=== PATIENT | male | born 1945 | race Hispanic/Latino ===

== ENCOUNTER → 2021-04-19 | Outpatient (CLI) | payer MEDICARE ==
[~2021-04-19] MED LIST: AMOX1TAB16 PO; ASPI-556 PO; ATOR40TA71 PO; BUPR-317 PO; FURO-152 PO; INSLAN SQ; LINA5TAB PO; METF-910 PO; METO25TA6 PO; REGADENOSON 0.4 MG/5 ML PF SYG IVP SCH; TAMS0.4C32 PO; TRAM-355 PO
== END | disposition home or self-care (01) ==
LOC: SHCH 08:10
PROVIDERS: ATTEND Internal Medicine Cardiovascular Disease
DX: I25.709 Atherosclerosis of coronary artery bypass graft(s), unspecified, with unspecified angina pectoris (principal); I11.9 Hypertensive heart disease without heart failure; Z95.1 Presence of aortocoronary bypass graft
CPT/HCPCS: 78452; 93017; 96374; A9500 ×2; J2785

== ENCOUNTER 2022-01-27 12:52 | Inpatient (IN) | payer MEDICARE, OTHER ==
[~2022-01-27] VITALS: Ht 175.3 cm; Wt 79.0 kg
[2022-01-27] VITALS (11 sets, daily range): BP systolic 95–142; BP diastolic 50–94
[~2022-01-27 12:52] MED LIST changes: -REGADENOSON 0.4 MG/5 ML PF SYG IVP SCH
[2022-01-27 13:19] LABS: BASOPHILS % (AUTO) 0.3 % (0.0-5.0); HEMATOCRIT 42.6 % (42-54); LYMPHOCYTES % (AUTO) 3.2 % (21.0-51.0); MEAN CORPUSCULAR HEMOGLOBIN 29.2 pg (27.0-33.0); MEAN CORPUSCULAR HGB CONC 33.3 g/dL (32.0-36.0); MEAN CORPUSCULAR VOLUME 87.5 fL (79-99); MONOCYTES % (AUTO) 8.8 % (3.0-13.0); PLATELET COUNT (AUTO) 218 K/uL (130-400); RED BLOOD CELL COUNT(AUTO) 4.87 MIL/uL (4.50-6.20); RED CELL DISTRIBUTION WIDTH 13.4 % (11.0-15.5); WHITE BLOOD COUNT (AUTO) 15.6 K/uL (4.8-10.8)
[2022-01-27] MEDS ORDERED: 0.9%NACL 1000ML 1,000 ML IV ONE (13:30)
[2022-01-27 13:33] LABS: ALBUMIN 2.9 g/dL (3.5-5.0); CREATININE 1.9 mg/dL (0.5-1.5); POTASSIUM 5.5 mmol/L (3.5-5.1); TOTAL PROTEIN, SERUM 7.7 g/dL (6.0-8.3)
[2022-01-27] MEDS: 0.9%NACL 1000ML 1,000 ML IV SCH ×3 (13:49→22:16)
[2022-01-27] MEDS ORDERED: INSULIN HUMULIN R 100 UNIT/ML 3ML IV ONE (14:00)
[2022-01-27] MEDS ORDERED: ZOSYN 3.375GM +NS 50ML IV SCH (14:00)
[2022-01-27 14:12] LABS: ABG BASE EXCESS -11.6 mmol/L (-2.0-3.0); ABG HCO3 12.9 mmol/L (21.0-28.0); ABG OXYGEN SATURATION 96.3 % (95.0-99.0); ABG PCO2 27 mmHg (35-48)
[2022-01-27] MEDS ORDERED: POTASSIUM CHLORIDE 10MEQ/100ML 100 ML IV PRN (14:30)
[2022-01-27] MEDS ORDERED: DEXTROSE 5 %-0.45 % NACL 1,000 ML IV PRN (14:30)
[2022-01-27] MEDS ORDERED: 0.9%NACL 1000ML 1,000 ML IV SCH (14:30)
[2022-01-27] MEDS: INSULIN REGULAR, HUMAN 3ML 100 UNIT in 0.9%NACL 100ML 99 ML IV SCH ×2 (14:53)
[2022-01-27] MEDS ORDERED: LISI2.5T13 PO (15:20)
[2022-01-27] MEDS ORDERED: ALBU10PO MC (15:20)
[2022-01-27] MEDS ORDERED: INSU3INS10 SQ (15:20)
[2022-01-27] MEDS ORDERED: ERGO500093 PO (15:20)
[2022-01-27] MEDS ORDERED: GLIM1TAB18 PO (15:20)
[2022-01-27 15:50] LABS: APPEARANCE,URINE CLEAR (CLEAR); BILIRUBIN,URINE NEGATIVE (NEGATIVE); COLOR,URINE YELLOW (YELLOW); GLUCOSE, URINE (UA) >=1000 mg/dL (NEGATIVE); KETONES,URINE 40 mg/dL (NEGATIVE); LEUKOCYTE ESTERASE ,URINE TRACE (NEGATIVE); NITRATE,URINE POSITIVE (NEGATIVE); OCCULT BLOOD,URINE SMALL (NEGATIVE); PROTEIN,URINE NEGATIVE (NEGATIVE); UROBILINOGEN,URINE 0.2 mg/dL (0.2-1.0)
[2022-01-27 16:08] LABS: BACTERIA,URINE Few /HPF (None Seen); RBC,URINE None Seen /HPF (0-1); SQUAMOUS EPITHELIAL CELL,UR None Seen /HPF (0-2)
[2022-01-27] MEDS ORDERED: PHARMACY COMMUNICATION MISC SCH (16:30)
[2022-01-27 17:13] LABS: POTASSIUM 4.3 mmol/L (3.5-5.1)
[2022-01-27 17:14] LABS: CREATININE 1.5 mg/dL (0.5-1.5)
[2022-01-27 17:23] LABS: THYROID STIMULATING HORMONE 1.61 uIU/mL (0.36-3.74)
[2022-01-27] MEDS: MEROPENEM 1 GM VIAL IV SCH (17:50)
[2022-01-27 19:17] LABS: CREATININE 1.5 mg/dL (0.5-1.5); POTASSIUM 4.1 mmol/L (3.5-5.1)
[2022-01-27] MEDS: ATORVASTATIN 40 MG TABLET PO SCH (20:45)
[2022-01-27] MEDS: INSULIN GLARGINE 100 UNITS/ML 10 ML VIAL SQ SCH (20:46)
[2022-01-27] MEDS ORDERED: METOPROLOL TARTRATE 25 MG TAB PO SCH (21:00)
[2022-01-27] MEDS ORDERED: ASPIRIN 325MG TAB PO STA (21:24)
[2022-01-27] MEDS ORDERED: NITROGLYCERIN 0.4 MG SL TAB SL PRN (21:30)
[2022-01-27] MEDS: ENOXAPARIN SODIUM 80 MG/0.8 ML SQ SCH (22:21)
[2022-01-27 23:22] LABS: CREATININE 1.2 mg/dL (0.5-1.5); POTASSIUM 3.8 mmol/L (3.5-5.1)
[2022-01-27] MEDS: D5W-1/2 NS/20MEQ KCL 1,000 ML IV SCH (23:57)
[2022-01-28] VITALS (23 sets, daily range): BP systolic 87–120; BP diastolic 46–68
[2022-01-28] MEDS: 0.9%NACL 1000ML 1,000 ML IV SCH ×4 (00:30→23:18)
[2022-01-28 03:43] LABS: HEMATOCRIT 34.4 % (42-54); MEAN CORPUSCULAR HEMOGLOBIN 29.1 pg (27.0-33.0); MEAN CORPUSCULAR HGB CONC 34.3 g/dL (32.0-36.0); MEAN CORPUSCULAR VOLUME 84.7 fL (79-99); RED BLOOD CELL COUNT(AUTO) 4.06 MIL/uL (4.50-6.20); RED CELL DISTRIBUTION WIDTH 13.3 % (11.0-15.5); WHITE BLOOD COUNT (AUTO) 11.2 K/uL (4.8-10.8)
[2022-01-28 04:05] LABS: CREATININE 1.1 mg/dL (0.5-1.5); MAGNESIUM 1.9 mg/dL (1.80-2.40); PHOSPHORUS 2.6 mg/dL (2.5-4.9); POTASSIUM 4.2 mmol/L (3.5-5.1); TOTAL PROTEIN, SERUM 5.7 g/dL (6.0-8.3); URIC ACID 7.1 mg/dL (2.6-7.2)
[2022-01-28] MEDS: D5W-1/2 NS/20MEQ KCL 1,000 ML IV SCH (05:19)
[2022-01-28] MEDS: MEROPENEM 1 GM VIAL IV SCH ×2 (05:19→16:31)
[2022-01-28 08:07] LABS: CREATININE 1.1 mg/dL (0.5-1.5); POTASSIUM 3.7 mmol/L (3.5-5.1)
[2022-01-28] MEDS: INSULIN REGULAR, HUMAN 3ML 100 UNIT in 0.9%NACL 100ML 99 ML IV SCH ×2 (08:50)
[2022-01-28] MEDS ORDERED: LISINOPRIL 2.5 MG TABLET PO SCH (09:00)
[2022-01-28] MEDS: FUROSEMIDE 20 MG TABLET PO SCH (09:00)
[2022-01-28] MEDS: MAGNESIUM 2GM PREMIX 50ML 50 ML IV PRN (09:58)
[2022-01-28] MEDS: Vitamin B Complex/Vit C/Folic Acid PO SCH (10:12)
[2022-01-28] MEDS: ASPIRIN 81 MG EC TAB PO SCH (10:12)
[2022-01-28] MEDS: ENOXAPARIN SODIUM 80 MG/0.8 ML SQ SCH (11:13)
[2022-01-28] MEDS: INSULIN HUMULIN R 100 UNIT/ML 3ML SQ SCH ×3 (11:14→21:33)
[2022-01-28] MEDS ORDERED: ACETAMINOPHEN 325 MG TAB PO PRN (12:30)
[2022-01-28] MEDS ORDERED: POTASSIUM CHLORIDE 10% ELIXIR 20 MEQ/15 ML UDCUP PO PRN (13:00)
[2022-01-28] MEDS ORDERED: LIDOCAINE HCL-MPF 1% 2ML VIAL IV PRN (13:00)
[2022-01-28] MEDS ORDERED: POTASSIUM CHLORIDE 20MEQ/100ML 100 ML IV PRN (13:00)
[2022-01-28] MEDS ORDERED: ZOSYN 3.375GM +NS 50ML IV SCH (14:00)
[2022-01-28 20:05] LABS: CREATININE 0.8 mg/dL (0.5-1.5); MAGNESIUM 2.1 mg/dL (1.80-2.40); POTASSIUM 3.8 mmol/L (3.5-5.1)
[2022-01-28] MEDS: INSULIN GLARGINE 100 UNITS/ML 10 ML VIAL SQ SCH (21:34)
[2022-01-28] MEDS: ATORVASTATIN 40 MG TABLET PO SCH (21:34)
[2022-01-29 00:18] VITALS: BP 115/64
[2022-01-29 04:00] VITALS: BP 121/68
[2022-01-29 04:28] LABS: HEMATOCRIT 34.8 % (42-54); MEAN CORPUSCULAR HEMOGLOBIN 28.6 pg (27.0-33.0); MEAN CORPUSCULAR HGB CONC 33.9 g/dL (32.0-36.0); MEAN CORPUSCULAR VOLUME 84.5 fL (79-99); PLATELET COUNT (AUTO) 135 K/uL (130-400); RED BLOOD CELL COUNT(AUTO) 4.12 MIL/uL (4.50-6.20); RED CELL DISTRIBUTION WIDTH 13.2 % (11.0-15.5); WHITE BLOOD COUNT (AUTO) 8.6 K/uL (4.8-10.8)
[2022-01-29 04:48] LABS: ALBUMIN 1.8 g/dL (3.5-5.0); CREATININE 0.8 mg/dL (0.5-1.5); MAGNESIUM 1.9 mg/dL (1.80-2.40); PHOSPHORUS 2.3 mg/dL (2.5-4.9); POTASSIUM 4.1 mmol/L (3.5-5.1); TOTAL PROTEIN, SERUM 5.3 g/dL (6.0-8.3)
[2022-01-29 04:56] LABS: LYMPHOCYTES % (MANUAL) 4 % (22-44); MONOCYTES % (MANUAL) 12 % (2-9); SEGMENTED NEUTROPHILS % 84 % (40-70)
[2022-01-29 04:57] LABS: MAN.DIFF COMMENT-IMPRESSION MANUAL DIFFERENTIAL; PLATELET MORPHOLOGY COMMENT ADEQUATE
[2022-01-29] MEDS: MEROPENEM 1 GM VIAL IV SCH ×2 (05:35→16:21)
[2022-01-29] MEDS: MAGNESIUM 2GM PREMIX 50ML 50 ML IV PRN (05:36)
[2022-01-29] MEDS: INSULIN HUMULIN R 100 UNIT/ML 3ML SQ SCH ×7 (06:17→22:19)
[2022-01-29 08:33] VITALS: BP 127/63
[2022-01-29] MEDS: ASPIRIN 81 MG EC TAB PO SCH (08:39)
[2022-01-29] MEDS: FUROSEMIDE 20 MG TABLET PO SCH (08:39)
[2022-01-29] MEDS: TAMSULOSIN HCL 0.4 MG CAP.ER.24H PO SCH (08:39)
[2022-01-29] MEDS: Vitamin B Complex/Vit C/Folic Acid PO SCH (08:39)
[2022-01-29] MEDS: ENOXAPARIN SODIUM 80 MG/0.8 ML SQ SCH (08:40)
[2022-01-29] MEDS: INSULIN GLARGINE 100 UNITS/ML 10 ML VIAL SQ SCH ×2 (08:45→22:21)
[2022-01-29] MEDS ORDERED: NEUTRA-PHOS PACKET 1 EACH PO SCH (10:30)
[2022-01-29 11:50] VITALS: BP 127/73
[2022-01-29] MEDS: 0.9%NACL 1000ML 1,000 ML IV SCH (13:53)
[2022-01-29 16:15] VITALS: BP 136/72
[2022-01-29 19:18] VITALS: BP 128/69
[2022-01-29] MEDS: ATORVASTATIN 40 MG TABLET PO SCH (22:18)
[2022-01-29] MEDS: METOPROLOL TARTRATE 25 MG TAB PO SCH (22:18)
[2022-01-30 00:15] VITALS: BP 117/64
[2022-01-30 03:18] VITALS: BP 123/66
[2022-01-30] MEDS: 0.9%NACL 1000ML 1,000 ML IV SCH ×2 (03:34→15:37)
[2022-01-30 04:29] LABS: BASOPHILS % (AUTO) 0.2 % (0.0-5.0); EOSINOPHILS % (AUTO) 0.1 % (0.0-8.0); HEMATOCRIT 33.9 % (42-54); LYMPHOCYTES % (AUTO) 11.9 % (21.0-51.0); MEAN CORPUSCULAR HEMOGLOBIN 28.7 pg (27.0-33.0); MEAN CORPUSCULAR HGB CONC 34.2 g/dL (32.0-36.0); MEAN CORPUSCULAR VOLUME 83.9 fL (79-99); MONOCYTES % (AUTO) 8.2 % (3.0-13.0); NEUTROPHILS % (AUTO) 78.9 % (40.0-77.0); PLATELET COUNT (AUTO) 157 K/uL (130-400); RED BLOOD CELL COUNT(AUTO) 4.04 MIL/uL (4.50-6.20); RED CELL DISTRIBUTION WIDTH 13.1 % (11.0-15.5); WHITE BLOOD COUNT (AUTO) 8.3 K/uL (4.8-10.8)
[2022-01-30] MEDS: MEROPENEM 1 GM VIAL IV SCH ×2 (04:36→15:54)
[2022-01-30 04:44] LABS: CREATININE 0.6 mg/dL (0.5-1.5); MAGNESIUM 1.8 mg/dL (1.80-2.40); PHOSPHORUS 2.5 mg/dL (2.5-4.9); POTASSIUM 3.7 mmol/L (3.5-5.1)
[2022-01-30] MEDS: KCL 20 MEQ ERTAB PO PRN ×2 (04:59→08:29)
[2022-01-30] MEDS: MAGNESIUM 2GM PREMIX 50ML 50 ML IV PRN (05:00)
[2022-01-30] MEDS: INSULIN HUMULIN R 100 UNIT/ML 3ML SQ SCH ×7 (06:48→21:00)
[2022-01-30 07:34] VITALS: BP 117/67
[2022-01-30] MEDS: TAMSULOSIN HCL 0.4 MG CAP.ER.24H PO SCH (08:25)
[2022-01-30] MEDS: FUROSEMIDE 20 MG TABLET PO SCH (08:25)
[2022-01-30] MEDS: METOPROLOL TARTRATE 25 MG TAB PO SCH ×2 (08:25→21:18)
[2022-01-30] MEDS: ASPIRIN 81 MG EC TAB PO SCH (08:26)
[2022-01-30] MEDS: Vitamin B Complex/Vit C/Folic Acid PO SCH (08:26)
[2022-01-30] MEDS: ENOXAPARIN SODIUM 30 MG/0.3 ML SQ SCH (08:27)
[2022-01-30] MEDS ORDERED: INSULIN GLARGINE 100 UNITS/ML 10 ML VIAL SQ SCH ×2 (09:00→21:00)
[2022-01-30 10:53] VITALS: BP 118/68
[2022-01-30] MEDS ORDERED: LACTULOSE 20 GM/30 ML UDCUP PO PRN (14:00)
[2022-01-30 15:12] VITALS: BP 135/74
[2022-01-30] MEDS ORDERED: LEVOFLOXACIN 500 MG TABLET PO SCH ×2 (18:00→20:00)
[2022-01-30 20:33] VITALS: BP 104/66
[2022-01-30] MEDS: ATORVASTATIN 40 MG TABLET PO SCH (21:18)
[2022-01-31 00:09] VITALS: BP 116/60
[2022-01-31 04:17] LABS: HEMATOCRIT 33.5 % (42-54); MEAN CORPUSCULAR HGB CONC 34.6 g/dL (32.0-36.0); MEAN CORPUSCULAR VOLUME 83.8 fL (79-99); RED CELL DISTRIBUTION WIDTH 13.2 % (11.0-15.5)
[2022-01-31 04:33] LABS: CREATININE 0.6 mg/dL (0.5-1.5); MAGNESIUM 1.5 mg/dL (1.80-2.40); PHOSPHORUS 3.3 mg/dL (2.5-4.9); POTASSIUM 3.9 mmol/L (3.5-5.1)
[2022-01-31] MEDS: 0.9%NACL 1000ML 1,000 ML IV SCH ×2 (04:38→07:47)
[2022-01-31 04:47] VITALS: BP 126/67
[2022-01-31] MEDS: MAGNESIUM 2GM PREMIX 50ML 50 ML IV PRN (04:59)
[2022-01-31] MEDS: INSULIN HUMULIN R 100 UNIT/ML 3ML SQ SCH ×4 (07:12→11:30)
[2022-01-31 07:30] VITALS: BP 131/63
[2022-01-31] MEDS: ENOXAPARIN SODIUM 30 MG/0.3 ML SQ SCH (07:45)
[2022-01-31] MEDS: TAMSULOSIN HCL 0.4 MG CAP.ER.24H PO SCH (07:49)
[2022-01-31] MEDS: METOPROLOL TARTRATE 25 MG TAB PO SCH (07:49)
[2022-01-31] MEDS: FUROSEMIDE 20 MG TABLET PO SCH (07:49)
[2022-01-31] MEDS: Vitamin B Complex/Vit C/Folic Acid PO SCH (07:49)
[2022-01-31] MEDS: ASPIRIN 81 MG EC TAB PO SCH (07:49)
[2022-01-31] MEDS ORDERED: LINA5TAB PO (08:24)
[2022-01-31] MEDS ORDERED: INSU200I SQ (08:24)
[2022-01-31] MEDS ORDERED: LEVO500T90 PO (08:24)
[2022-01-31] MEDS ORDERED: INSLAN SQ ×2 (08:24)
[2022-01-31] MEDS ORDERED: ATOR40TA71 PO (08:24)
[2022-01-31] MEDS ORDERED: FURO-152 PO (08:24)
[2022-01-31] MEDS ORDERED: AEC81 PO (08:24)
[2022-01-31] MEDS ORDERED: LISI2.5T13 PO (08:24)
[2022-01-31] MEDS ORDERED: METOPROLOL SUCCINATE 50 MG TAB.SR.24H PO SCH (09:00)
[2022-01-31 10:45] VITALS: BP 128/62
== END 2022-01-31 12:45 | disposition home or self-care (01) | DRG 871 ==
LOC: EDH 12:52 → EDHIP 15:12 → 2BH 16:55 → 2DH 01-28 17:11
PROVIDERS: ADMIT Internal Medicine; ATTEND Internal Medicine
DX: A41.51 Sepsis due to Escherichia coli [E. coli] (principal); E11.10 Type 2 diabetes mellitus with ketoacidosis without coma; I21.A1 Myocardial infarction type 2; N17.9 Acute kidney failure, unspecified; I42.9 Cardiomyopathy, unspecified; E46 Unspecified protein-calorie malnutrition; N13.6 Pyonephrosis; Z20.822 Contact with and (suspected) exposure to COVID-19; E78.00 Pure hypercholesterolemia, unspecified; I25.10 Atherosclerotic heart disease of native coronary artery without angina pectoris; E87.5 Hyperkalemia; N40.1 Benign prostatic hyperplasia with lower urinary tract symptoms; R33.8 Other retention of urine; E88.09 Other disorders of plasma-protein metabolism, not elsewhere classified; Z66 Do not resuscitate; J44.9 Chronic obstructive pulmonary disease, unspecified; I10 Essential (primary) hypertension; F17.210 Nicotine dependence, cigarettes, uncomplicated; Z79.84 Long term (current) use of oral hypoglycemic drugs; Z81.8 Family history of other mental and behavioral disorders; Z82.49 Family history of ischemic heart disease and other diseases of the circulatory system; Z83.3 Family history of diabetes mellitus; Z85.038 Personal history of other malignant neoplasm of large intestine; Z85.46 Personal history of malignant neoplasm of prostate; Z95.1 Presence of aortocoronary bypass graft; Z68.25 Body mass index [BMI] 25.0-25.9, adult
CPT/HCPCS: 36415; 36600; 71045; 74176; 76770; 80048; 80053; 81001; 82010; 82803; 82948; 83036; 83605; 83735; 84100; 84145; 84443; 84484; 84550; 85025; 85027; 87077; 87088; 87186; 87635; 87804; 93005; 93306; 93356; 99291; C9803; G0378; J1650; J1815; J2185; J2543; J3475; J3480; J7030; J7042

== ENCOUNTER → 2022-07-20 | Outpatient (CLI) | payer OTHER ==
[~2022-07-20] MED LIST changes: +AEC81 PO; +ALBU10PO MC; -AMOX1TAB16 PO; -ASPI-556 PO; -BUPR-317 PO; +ERGO500093 PO; +INSU200I SQ; +LEVO-70 PO; +LISI2.5T13 PO; -METF-910 PO; -METO25TA6 PO
== END | disposition home or self-care (01) ==
LOC: SHCH 13:46
PROVIDERS: ATTEND Internal Medicine Cardiovascular Disease
DX: I47.1 Supraventricular tachycardia (principal)
CPT/HCPCS: 93306